=== PATIENT | female | born 1995 | race Caucasian/White ===

== ENCOUNTER 2025-02-20 17:32 | Day surgery (SDC) | payer BC ==
[2025-02-20] MEDS ORDERED: hydrALAZINE 20 MG/ML VIAL SLOW IVP PRN (18:05)
== END 2025-02-20 19:45 | disposition home or self-care (01) ==
LOC: CSHLD/OP 17:32
PROVIDERS: ATTEND Obstetrics & Gynecology
DX: O36.8120 Decreased fetal movements, second trimester, not applicable or unspecified (principal); Z3A.27 27 weeks gestation of pregnancy
CPT/HCPCS: 76815